=== PATIENT | female | born 1985 | race Caucasian/White ===

== ENCOUNTER → 2017-03-31 | Outpatient (REF) | payer OTHER ==
[2017-03-31 14:14] LABS: HEMATOCRIT 32.2 % (36.0-47.0); HEMOGLOBIN 10.4 g/dl (12.0-16.0); MEAN CORPUSCULAR HEMOGLOBIN 28.7 pg (27.0-33.0); MEAN CORPUSCULAR HGB CONC 32.3 g/dl (32.0-36.5); PLATELET COUNT, AUTOMATED 188 10^3/uL (150-450); RED BLOOD COUNT 3.62 10^6/uL (4.00-5.40); RED CELL DISTRIBUTION WIDTH 12.8 % (11.5-14.5); WHITE BLOOD COUNT 7.1 10^3/uL (4.0-10.0)
[2017-03-31 14:59] LABS: HCG, SERUM QUANTITATIVE 31592 MIU/ML
[2017-03-31 15:49] LABS: CHLAMYDIA DNA AMPLIFICATION NEGATIVE (NEGATIVE); GC DNA AMPLIFICATION NEGATIVE (NEGATIVE)
[2017-04-01 10:01] LABS: RUBELLA IgG QUALITATIVE IMMUNE (IMMUNE)
[2017-04-01 10:11] LABS: HBsAg Prenatal NEGATIVE (NEGATIVE)
[2017-04-01 10:33] LABS: HIV 1&2 SCREEN CENTAUR NEGATIVE (NEGATIVE)
== END ==
LOC: M LAB REF 12:43
DX: Z32.01 Encounter for pregnancy test, result positive (principal)
CPT/HCPCS: 84702

== ENCOUNTER → 2017-05-12 | Outpatient (CLI) | payer OTHER ==
[2017-05-12 11:46] LABS: HEMATOCRIT 27.5 % (36.0-47.0); HEMOGLOBIN 8.7 g/dl (12.0-16.0); MEAN CORPUSCULAR HEMOGLOBIN 26.8 pg (27.0-33.0); MEAN CORPUSCULAR HGB CONC 31.6 g/dl (32.0-36.5); MEAN CORPUSCULAR VOLUME 84.6 fl (80.0-96.0); PLATELET COUNT, AUTOMATED 150 10^3/uL (150-450); RED BLOOD COUNT 3.25 10^6/uL (4.00-5.40); RED CELL DISTRIBUTION WIDTH 12.8 % (11.5-14.5); WHITE BLOOD COUNT 6.6 10^3/uL (4.0-10.0)
[2017-05-12 12:04] LABS: GLUCOSE CHALLENGE TEST 1 HOUR 112 MG/DL (LESS THAN 140)
[2017-05-13 08:39] LABS: AB SCREEN (INDIRECT COOMBS)VIS 1 1
== END ==
LOC: M LAB 10:07
DX: Z34.82 Encounter for supervision of other normal pregnancy, second trimester (principal)
CPT/HCPCS: 82950

== ENCOUNTER 2017-06-28 06:39 | Outpatient (CLI) | payer OTHER ==
[2017-06-28] MEDS: LR 1,000 ML IV ×2 (07:52→08:58)
[2017-06-28] MEDS: ONDANSETRON 4MG/2ML VIAL (J2405) IV (08:15)
[2017-06-28] MEDS: PROMETHAZINE INJ 25 MG/ML VIAL (J2550) IV (09:20)
== END 2017-06-28 12:15 | disposition home or self-care (01) ==
LOC: M LDO 06:39
DX: O99.613 Diseases of the digestive system complicating pregnancy, third trimester (principal); O47.03 False labor before 37 completed weeks of gestation, third trimester; Z3A.33 33 weeks gestation of pregnancy
CPT/HCPCS: J2405

== ENCOUNTER 2017-08-03 11:01 | Inpatient (IN) | payer OTHER ==
[2017-08-03] MEDS: LR 1,000 ML IV (11:46)
[2017-08-03 11:58] LABS: HEMATOCRIT 36.2 % (36.0-47.0); HEMOGLOBIN 11.9 g/dl (12.0-15.5); MEAN CORPUSCULAR HEMOGLOBIN 28.7 pg (27.0-33.0); MEAN CORPUSCULAR HGB CONC 32.9 g/dl (32.0-36.5); MEAN CORPUSCULAR VOLUME 87.4 fl (80.0-96.0); PLATELET COUNT, AUTOMATED 148 10^3/uL (150-450); RED BLOOD COUNT 4.14 10^6/uL (4.00-5.40); RED CELL DISTRIBUTION WIDTH 17.1 % (11.5-14.5); WHITE BLOOD COUNT 9.1 10^3/uL (4.0-10.0)
[2017-08-03] MEDS ORDERED: FENTANYL 2MCG/ML ROPIVACAINE 0.2% IN 0.9% NACL 200ML IVBAG As Ordered (12:44)
[2017-08-03] MEDS ORDERED: OXYTOCIN 30 UNITS IN 0.9% NaCl 500ML IV BAG (J2590) As Ordered (13:03)
[2017-08-03] MEDS ORDERED: OXYTOCIN 30 UNITS IN 0.9% NaCl 500ML IV BAG (J2590) IV (21:00)
[2017-08-03] MEDS ORDERED: RHOGAM 300 MCG (1500 IU) INJ (J2790) IM (21:00)
[2017-08-03] MEDS ORDERED: ACETAMINOPHEN 500 MG TAB PO (21:00)
[2017-08-03] MEDS ORDERED: ACETAMINOPHEN TAB 650MG DOSE (2X325MG) PO (21:00)
[2017-08-03] MEDS ORDERED: MEASLES,MUMPS,RUBELLA VACCINE INJ (MMR-II) (90707) SQ (21:00)
[2017-08-03] MEDS ORDERED: ANUSOL HC CREAM 30GM TOP (21:00)
[2017-08-03] MEDS ORDERED: METHYLERGONOVINE MALEATE 0.2 MG TAB PO (21:00)
[2017-08-03] MEDS ORDERED: MOM 30ML SUSPENSION UDC PO (21:00)
[2017-08-03] MEDS: IBUPROFEN 800 MG TAB PO (22:45)
[2017-08-04] MEDS: DOCUSATE SODIUM 100 MG CAP PO (08:50)
[2017-08-04] MEDS: IBUPROFEN 800 MG TAB PO (08:50)
== END 2017-08-04 15:35 | disposition home or self-care (01) | DRG 560 ==
LOC: M LDI 11:01 → M OBS 23:51
PROVIDERS: Obstetrics & Gynecology
PROC: 10E0XZZ Delivery of Products of Conception, External Approach (ICD-10-PCS; principal; 2017-08-03)
PROC: 10907ZC Drainage of Amniotic Fluid, Therapeutic from Products of Conception, Via Natural or Artificial Opening (ICD-10-PCS; 2017-08-03)
DX: O80 Encounter for full-term uncomplicated delivery (principal); Z37.0 Single live birth; Z3A.39 39 weeks gestation of pregnancy

== ENCOUNTER → 2021-09-04 | Outpatient (REF) | payer OTHER ==
[~2021-09-04] MED LIST: ACET500C PO; FERR325T3 PO; MAPA500T2 PO; MOTR200T44 PO; PREN27TA3 PO
== END ==
LOC: M LAB REF 13:12
PROVIDERS: ATTEND Nurse Practitioner Family
DX: Z12.4 Encounter for screening for malignant neoplasm of cervix (principal)

== ENCOUNTER → 2023-05-23 | Outpatient (REF) | payer OTHER ==
[2023-05-23 17:28] LABS: FREE T3 3.3 PG/ML (2.3-4.2)
[2023-05-23 17:29] LABS: FREE T4 1.01 NG/DL (0.89-1.76); THYROID STIMULATING HORMONE 2.573 uIU/ML (0.55-4.78)
== END ==
LOC: M LABWUC 16:34
PROVIDERS: ATTEND Ophthalmology
DX: H16.223 Keratoconjunctivitis sicca, not specified as Sjogren's, bilateral (principal)